=== PATIENT | male | born 1980 | race Caucasian/White ===

== ENCOUNTER 2019-09-04 15:26 | Emergency (ER) | payer MEDICAID ==
[~2019-09-04] VITALS: Ht 177.8 cm; Wt 78.5 kg
--- NOTE | 2019-09-04 15:45 | NUR ---
Attempted to call patient back for triage, not in waiting room. Patient stated to staff he was going to step outside.
[2019-09-04 15:49] VITALS: BP_SYST 142
--- NOTE | 2019-09-04 16:05 | NUR ---
Patient to ER bed H1 to gown for evaluation. Side rails up. Assumed care.
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
--- NOTE | 2019-09-04 16:54 | NUR ---
ER at bedside examining patient.
[2019-09-04] MEDS ORDERED: LIDOCAINE 1%, 20 ML MDV 20 ML ONE (17:21)
--- NOTE | 2019-09-04 18:11 | NUR ---
Dr. Murillo at bedside for removal of splinter.
[2019-09-04 18:28] VITALS: BP_SYST 132
--- NOTE | 2019-09-04 18:28 | NUR ---
Patient given written and verbal discharge instructions and verbalizes understanding. ER MD discussed with patient the results and treatment provided. Patient in stable condition. ID arm band removed. Rx of Augmentin given. Patient educated on pain management and to follow up with PMD. Pain Scale 0/10. Opportunity for questions provided and answered. Medication side effect fact sheet provided.
[2019-09-04] MEDS ORDERED: AMOXICILLIN/CLAVULANATE POTASSIUM 875 MG TABLET PO ONE (18:30)
== END 2019-09-04 18:28 | disposition home or self-care (01) ==
LOC: SED 15:26
DX: S61.249 Puncture wound with foreign body of unspecified finger without damage to nail (principal); W45.8XXA Other foreign body or object entering through skin, initial encounter; Y93.89 Activity, other specified; Y92.89 Other specified places as the place of occurrence of the external cause; Y99.8 Other external cause status
CPT/HCPCS: 73130; 99284; J2001